=== PATIENT | female | born 1945 | race Hispanic/Latino ===

== ENCOUNTER 2017-11-20 05:19 | Emergency (ER) | payer MEDICARE ==
[~2017-11-20 05:19] MED LIST: ASPI-1181 PO; EZET10 PO; LEVO50TA4 PO; METO25TA6 PO; PIND10TA2 PO; ROSU20TA PO
[2017-11-20] MEDS ORDERED: ONDANSETRON ODT 4 MG TAB ONE (05:26)
[2017-11-20] MEDS ORDERED: HYDRALAZINE HCL 20 MG/ML VIAL ONE (05:38)
[2017-11-20 05:51] LABS: BASOPHILS % (AUTO) 0.7 % (0.0-5.0); EOSINOPHILS % (AUTO) 1.5 % (0.0-8.0); HEMATOCRIT 40.3 % (36-48); LYMPHOCYTES % (AUTO) 18.4 % (21.0-51.0); MEAN CORPUSCULAR HEMOGLOBIN 29.9 pg (27.0-33.0); MEAN CORPUSCULAR HGB CONC 33.4 g/dL (32.0-36.0); MEAN CORPUSCULAR VOLUME 89.7 fL (79-99); MONOCYTES % (AUTO) 9.1 % (3.0-13.0); NEUTROPHILS % (AUTO) 70.3 % (40.0-77.0); NUCLEATED RED BLOOD CELLS 0.1 % (0.0-0.19); PLATELET COUNT (AUTO) 288 K/uL (130-400); RED CELL DISTRIBUTION WIDTH 14.8 % (11.0-15.5); WHITE BLOOD COUNT (AUTO) 9.2 K/uL (4.8-10.8)
[2017-11-20] MEDS ORDERED: IOPAMIDOL-370 75 ML VIAL IV ONE (06:00)
[2017-11-20 06:16] LABS: APPEARANCE,URINE Clear (CLEAR); BILIRUBIN,URINE Negative (NEGATIVE); COLOR,URINE Yellow (YELLOW); GLUCOSE, URINE (UA) Negative (NEGATIVE); KETONES,URINE Negative (NEGATIVE); LEUKOCYTE ESTERASE ,URINE Trace (NEGATIVE); NITRATE,URINE Negative (NEGATIVE); OCCULT BLOOD,URINE Negative (NEGATIVE); PH,URINE 7.5 (5.0-8.0); PROTEIN,URINE POS 2+ (NEGATIVE); UROBILINOGEN,URINE 0.2 mg/dL (0.2-1.0)
[2017-11-20 06:17] LABS: RAPID GROUP A STREP NEGATIVE (NEGATIVE)
[2017-11-20] MEDS ORDERED: ONDANSETRON HCL 4 MG/2 ML VIAL ONE ×2 (06:21→07:52)
[2017-11-20 06:32] LABS: CREATININE 0.7 mg/dL (0.5-1.5); POTASSIUM 3.3 mmol/L (3.5-5.1)
[2017-11-20 06:37] LABS: ALBUMIN 3.5 g/dL (3.5-5.0); BILIRUBIN,TOTAL 0.3 mg/dL (0.2-1.0); TOTAL PROTEIN, SERUM 7.6 g/dL (6.0-8.3)
[2017-11-20] MEDS ORDERED: MORPHINE SULFATE 8 MG/ML VIAL ONE (06:41)
[2017-11-20 07:25] LABS: BACTERIA,URINE Rare /HPF (None Seen); SQUAMOUS EPITHELIAL CELL,UR Rare /LPF (0-2); WBC,URINE 0-1 /HPF (0-1)
== END 2017-11-20 11:56 | disposition home or self-care (01) ==
LOC: EDH 05:19
DX: R10.30 Lower abdominal pain, unspecified (principal); R11.2 Nausea with vomiting, unspecified; I10 Essential (primary) hypertension
CPT/HCPCS: 36415; 70450; 71045; 74177; 80053; 81001; 83605; 83690; 84484; 85025; 87804 ×2; 87880; 96365; 96366; 96375; 96376; 99285; J0360; J2270; J2405 ×2; Q9967

== ENCOUNTER 2019-01-11 18:17 | Emergency (ER) | payer MEDICARE ==
[~2019-01-11 18:17] MED LIST changes: -ROSU20TA PO; +ROSU20TA23 PO
[2019-01-11 19:10] LABS: BASOPHILS % (AUTO) 0.4 % (0.0-5.0); EOSINOPHILS % (AUTO) 1.6 % (0.0-8.0); HEMATOCRIT 38.8 % (36-48); LYMPHOCYTES % (AUTO) 17.3 % (21.0-51.0); MEAN CORPUSCULAR HEMOGLOBIN 30.3 pg (27.0-33.0); MEAN CORPUSCULAR VOLUME 91.6 fL (79-99); MONOCYTES % (AUTO) 11.2 % (3.0-13.0); NEUTROPHILS % (AUTO) 69.5 % (40.0-77.0); NUCLEATED RED BLOOD CELLS 0.1 % (0.0-0.19); PLATELET COUNT (AUTO) 275 K/uL (130-400); RED BLOOD CELL COUNT(AUTO) 4.23 MIL/uL (4.00-5.50); RED CELL DISTRIBUTION WIDTH 15.1 % (11.0-15.5); WHITE BLOOD COUNT (AUTO) 7.4 K/uL (4.8-10.8)
[2019-01-11 19:30] LABS: POTASSIUM 4.6 mmol/L (3.5-5.1)
[2019-01-11 19:34] LABS: ALBUMIN 3.5 g/dL (3.5-5.0); BILIRUBIN,TOTAL 0.2 mg/dL (0.2-1.0); TOTAL PROTEIN, SERUM 7.6 g/dL (6.0-8.3)
[2019-01-11 20:16] LABS: APPEARANCE,URINE CLOUDY (CLEAR); BILIRUBIN,URINE NEGATIVE (NEGATIVE); COLOR,URINE YELLOW (YELLOW); GLUCOSE, URINE (UA) NEGATIVE (NEGATIVE); KETONES,URINE NEGATIVE (NEGATIVE); LEUKOCYTE ESTERASE ,URINE NEGATIVE (NEGATIVE); NITRATE,URINE NEGATIVE (NEGATIVE); OCCULT BLOOD,URINE NEGATIVE (NEGATIVE); PROTEIN,URINE NEGATIVE (NEGATIVE); UROBILINOGEN,URINE 0.2 mg/dL (0.2-1.0)
[2019-01-11 20:39] LABS: BACTERIA,URINE Rare /HPF (None Seen); RBC,URINE 0-1 /HPF (0-1); SQUAMOUS EPITHELIAL CELL,UR Rare /HPF (0-2); WBC,URINE 0-1 /HPF (0-1)
[2019-01-11 20:40] LABS: MUCUS,URINE Rare LPF (None Seen)
== END 2019-01-11 20:54 | disposition home or self-care (01) ==
LOC: EDH 18:17
DX: N81.4 Uterovaginal prolapse, unspecified (principal); R30.0 Dysuria; I10 Essential (primary) hypertension; Z98.890 Other specified postprocedural states
CPT/HCPCS: 36415; 71045; 76856; 80053; 81001; 85025

== ENCOUNTER → 2019-08-31 | Outpatient (CLI) | payer MEDICARE ==
[~2019-08-31] MED LIST changes: -EZET10 PO; +EZET10TA13 PO; +IOHEXOL-350 50ML VIAL IV ONE; +IOHEXOL-350 75 ML VIAL IV ONE
== END | disposition home or self-care (01) ==
LOC: RAH 08:10
PROVIDERS: ATTEND Internal Medicine Cardiovascular Disease
DX: I11.9 Hypertensive heart disease without heart failure (principal); I70.0 Atherosclerosis of aorta; I35.0 Nonrheumatic aortic (valve) stenosis; I73.9 Peripheral vascular disease, unspecified; K55.1 Chronic vascular disorders of intestine; K57.30 Diverticulosis of large intestine without perforation or abscess without bleeding; N28.1 Cyst of kidney, acquired; K44.9 Diaphragmatic hernia without obstruction or gangrene; I70.1 Atherosclerosis of renal artery
CPT/HCPCS: 75635; Q9967 ×2

== ENCOUNTER 2019-09-17 05:55 | Day surgery (SDC) | payer MEDICARE ==
[2019-09-15 14:36] VITALS: BP 201/83
[2019-09-15 14:42] LABS: BASOPHILS % (AUTO) 0.6 % (0.0-5.0); HEMATOCRIT 36.6 % (36-48); LYMPHOCYTES % (AUTO) 19.3 % (21.0-51.0); MEAN CORPUSCULAR HEMOGLOBIN 29.7 pg (27.0-33.0); MEAN CORPUSCULAR HGB CONC 32.7 g/dL (32.0-36.0); MEAN CORPUSCULAR VOLUME 90.9 fL (79-99); MONOCYTES % (AUTO) 10.5 % (3.0-13.0); NEUTROPHILS % (AUTO) 68.6 % (40.0-77.0); PLATELET COUNT (AUTO) 292 K/uL (130-400); RED BLOOD CELL COUNT(AUTO) 4.03 MIL/uL (4.00-5.50); RED CELL DISTRIBUTION WIDTH 15.8 % (11.0-15.5)
[2019-09-15 14:46] LABS: CREATININE 0.6 mg/dL (0.5-1.5); POTASSIUM 4.7 mmol/L (3.5-5.1)
[2019-09-15 14:47] LABS: APPEARANCE,URINE CLEAR (CLEAR); BILIRUBIN,URINE NEGATIVE (NEGATIVE); COLOR,URINE YELLOW (YELLOW); GLUCOSE, URINE (UA) NEGATIVE (NEGATIVE); KETONES,URINE NEGATIVE (NEGATIVE); LEUKOCYTE ESTERASE ,URINE NEGATIVE (NEGATIVE); NITRATE,URINE NEGATIVE (NEGATIVE); OCCULT BLOOD,URINE TRACE-LYSED (NEGATIVE); PROTEIN,URINE NEGATIVE (NEGATIVE); UROBILINOGEN,URINE 0.2 mg/dL (0.2-1.0)
[2019-09-15 14:49] LABS: INR 1.02 (0.85-1.15); PARTIAL THROMBOPLASTIN TIME 24.8 SEC (26.3-35.5); PROTHROMBIN TIME 10.7 SEC (9.6-11.6)
[2019-09-15 14:56] LABS: BACTERIA,URINE Rare /HPF (None Seen); MUCUS,URINE Rare LPF (None Seen); SQUAMOUS EPITHELIAL CELL,UR Few /HPF (0-2); WBC,URINE 0-1 /HPF (0-1)
[2019-09-17] VITALS (12 sets, daily range): BP systolic 100–188; BP diastolic 53–82
[~2019-09-17] VITALS: Ht 144.8 cm; Wt 50.1 kg
[~2019-09-17 05:55] MED LIST changes: -ASPI-1181 PO; +ASPI-555 PO; +BIMA2.5D4 OU; -IOHEXOL-350 50ML VIAL IV ONE; -IOHEXOL-350 75 ML VIAL IV ONE; +IRON; +LOSA25TA41 PO; +METF500S7 PO; -METO25TA6 PO; -PIND10TA2 PO; +PIND5 PO; +SODIUM CHLORIDE 0.9% 500ML 500 ML IV SCH; +VIT D3
[2019-09-17] MEDS ORDERED: SODIUM CHLORIDE 0.9% 1000ML 1,000 ML IV ONE (06:29)
[2019-09-17] MEDS ORDERED: LEVO75TA10 PO (06:46)
[2019-09-17] MEDS ORDERED: HEPARIN SODIUM 1000UNIT/ML 10ML VIAL ONE (07:14)
[2019-09-17] MEDS ORDERED: NITROGLYCERIN 5 MG/ML 10 ML VIAL IV ONE (07:15)
[2019-09-17] MEDS ORDERED: IODIXANOL 320 MG/ML 100 ML VIAL ONE (07:15)
[2019-09-17] MEDS ORDERED: MIDAZOLAM HCL 1 MG/ML 2ML VIAL ONE (07:15)
[2019-09-17] MEDS ORDERED: FENTANYL CITRATE PF 50 MCG/1 ML 2ML VIAL ONE (07:15)
[2019-09-17] MEDS ORDERED: LIDOCAINE HCL 2% 20ML ONE ×2 (07:15→09:12)
--- NOTE | 2019-09-17 07:20 | NUR ---
PROCEDURE PT TAKEN TO MANAGER [place] FOR SCHEDULE PROCEDURE , FAMILY AT BEDSIDE.
[2019-09-17] MEDS ORDERED: LABETALOL HCL 5 MG/ML 20ML VIAL IV ONE (07:40)
[2019-09-17] MEDS ORDERED: ONDANSETRON HCL 4 MG/2 ML VIAL ONE (08:30)
[2019-09-17] MEDS ORDERED: HYDRALAZINE HCL 20 MG/ML VIAL ONE (09:02)
--- NOTE | 2019-09-17 10:15 | NUR ---
post received pt from [employer], s/p abd aortagram with chaparrita runoffs. angioseal closure device to chaparrita groin. see post cath assessment. pt arrived very nauseated. vs stable on arrival. pt awake and alert, DR. Lind spoke to family about findings on procedure performed. plan of care discuss with patient and family , instructed to keep bedrest . will continue to monitor
[2019-09-17] MEDS ORDERED: METOCLOPRAMIDE 10 MG/2 ML VIAL ONE (10:24)
--- NOTE | 2019-09-17 10:27 | NUR ---
med medicated with reglan iv for c/o nausea per md orders. will monitor for med effect
[2019-09-17] MEDS ORDERED: METOCLOPRAMIDE 10 MG/2 ML VIAL IVP PRN (11:00)
--- NOTE | 2019-09-17 11:25 | NUR ---
med effect patient stated nausea subsided, states "just feels sleepy , want to sleep". pt offered lunch she stated "wants to eat later".
== END 2019-09-17 17:10 | disposition home or self-care (01) ==
LOC: DAH 05:55
PROVIDERS: ATTEND Internal Medicine Cardiovascular Disease
DX: I70.211 Atherosclerosis of native arteries of extremities with intermittent claudication, right leg (principal); M79.651 Pain in right thigh; M79.652 Pain in left thigh; I25.10 Atherosclerotic heart disease of native coronary artery without angina pectoris; I11.0 Hypertensive heart disease with heart failure; I50.33 Acute on chronic diastolic (congestive) heart failure; E78.5 Hyperlipidemia, unspecified; E03.9 Hypothyroidism, unspecified; Z95.1 Presence of aortocoronary bypass graft; Z79.899 Other long term (current) drug therapy; Z79.82 Long term (current) use of aspirin; Z79.84 Long term (current) use of oral hypoglycemic drugs; Z86.010 Personal history of colon polyps; Z82.49 Family history of ischemic heart disease and other diseases of the circulatory system; Z83.3 Family history of diabetes mellitus
CPT/HCPCS: 36247; 36415; 71045; 75630; 80048; 81001; 82948 ×3; 85025; 85610; 85730; 93005; A4215; A4216; A4221; A4222; A4223 ×3; A4606; A4663; C1760 ×2; C1769 ×2; C1894 ×4; J0360; J1644 ×2; J2405; J2765; J3010; J3490 ×4; J7030; Q9967; 99156; 99157; J2250

== ENCOUNTER → 2021-07-18 | Outpatient (CLI) | payer MEDICARE ==
[~2021-07-18] MED LIST changes: -ASPI-555 PO; +ASPI-556 PO; -LEVO50TA4 PO; +LEVO75TA10 PO; -SODIUM CHLORIDE 0.9% 500ML 500 ML IV SCH
== END | disposition home or self-care (01) ==
LOC: RAH 08:17
PROVIDERS: ATTEND Internal Medicine Cardiovascular Disease
DX: K80.20 Calculus of gallbladder without cholecystitis without obstruction (principal); N28.1 Cyst of kidney, acquired; R94.5 Abnormal results of liver function studies
CPT/HCPCS: 76705

== ENCOUNTER → 2022-12-20 | Outpatient (CLI) | payer MEDICARE ==
[~2022-12-20] MED LIST changes: -METF500S7 PO; +METF500S9 PO
[2022-12-20 13:15] LABS: CREATININE 1.4 mg/dL (0.5-1.5)
== END | disposition home or self-care (01) ==
LOC: LAB 08:08
PROVIDERS: ATTEND Internal Medicine Cardiovascular Disease
DX: I25.2 Old myocardial infarction (principal)
CPT/HCPCS: 36415; 80048

== ENCOUNTER 2023-01-28 15:30 | Emergency (ER) | payer MEDICARE | END 2023-01-28 17:07 | disposition left against medical advice (07) | LOC: EDH 15:30 | DX: M79.606 Pain in leg, unspecified (principal); Z53.21 Procedure and treatment not carried out due to patient leaving prior to being seen by health care provider ==

== ENCOUNTER 2023-01-29 23:51 | Emergency (ER) | payer MEDICARE ==
[~2023-01-29] VITALS: Ht 144.8 cm; Wt 45.8 kg
[2023-01-30] MEDS ORDERED: IBUP-1493 PO (00:21)
[2023-01-30] MEDS ORDERED: GABA300C PO (00:21)
[2023-01-30 03:35] LABS: APPEARANCE,URINE CLOUDY (CLEAR); BACTERIA,URINE RARE /HPF (None Seen); BILIRUBIN,URINE NEGATIVE (NEGATIVE); COLOR,URINE LIGHT-YELLOW (YELLOW); GLUCOSE, URINE (UA) >=1000 mg/dL (NEGATIVE); KETONES,URINE NEGATIVE (NEGATIVE); LEUKOCYTE ESTERASE ,URINE 25 Leu/uL (NEGATIVE); NITRATE,URINE NEGATIVE (NEGATIVE); OTHER CASTS, URINE 1 /LPF (None Seen); PH,URINE 6.5 (5.0-8.0); PROTEIN,URINE 50 mg/dL (NEGATIVE); RBC,URINE 0-1 /HPF (0-1); SQUAMOUS EPITHELIAL CELL,UR RARE /HPF (0-2); UROBILINOGEN,URINE 0.2 mg/dL (0.2-1.0)
[2023-01-30] MEDS ORDERED: ACETAMINOPHEN 500 MG TABLET ONE (03:49)
[2023-01-30] MEDS ORDERED: ACETAMINOPHEN 500 MG TABLET PO STA (04:13)
[2023-01-30 04:15] VITALS: BP 132/74
[2023-02-01] MEDS ORDERED: ATOR40TA69 PO (10:49)
[2023-02-01] MEDS ORDERED: DAPA5TAB PO (10:49)
[2023-02-01] MEDS ORDERED: LOSA50TA64 PO (10:49)
[2023-02-01] MEDS ORDERED: ALEN70TA80 PO (15:42)
== END 2023-01-30 04:24 | disposition home or self-care (01) ==
LOC: EDH 23:51
DX: M54.50 Low back pain, unspecified (principal); M19.90 Unspecified osteoarthritis, unspecified site; E11.9 Type 2 diabetes mellitus without complications; E78.00 Pure hypercholesterolemia, unspecified; E03.9 Hypothyroidism, unspecified; I10 Essential (primary) hypertension; Z79.1 Long term (current) use of non-steroidal anti-inflammatories (NSAID); Z79.84 Long term (current) use of oral hypoglycemic drugs; Z79.899 Other long term (current) drug therapy; Z90.49 Acquired absence of other specified parts of digestive tract
CPT/HCPCS: 72100; 81001; 87088

== ENCOUNTER 2023-01-31 21:33 | Emergency (ER) | payer MEDICARE ==
[~2023-01-31] VITALS: Ht 149.9 cm; Wt 43.1 kg
[~2023-01-31 21:33] MED LIST changes: +GABA300C PO; +IBUP-1493 PO
[2023-01-31] MEDS ORDERED: MORPHINE 2 MG SYG IM SCH (22:00)
[2023-01-31 22:15] VITALS: BP 137/75
[2023-02-01] MEDS ORDERED: LOSA50TA64 PO (10:49)
[2023-02-01] MEDS ORDERED: DAPA5TAB PO (10:49)
[2023-02-01] MEDS ORDERED: ATOR40TA69 PO (10:49)
[2023-02-01] MEDS ORDERED: ALEN70TA80 PO (15:42)
== END 2023-01-31 22:49 | disposition home or self-care (01) ==
LOC: EDH 21:33
DX: M54.50 Low back pain, unspecified (principal); M19.90 Unspecified osteoarthritis, unspecified site; E11.9 Type 2 diabetes mellitus without complications; E78.00 Pure hypercholesterolemia, unspecified; E03.9 Hypothyroidism, unspecified; I10 Essential (primary) hypertension; Z79.1 Long term (current) use of non-steroidal anti-inflammatories (NSAID); Z79.84 Long term (current) use of oral hypoglycemic drugs; Z79.899 Other long term (current) drug therapy; Z90.49 Acquired absence of other specified parts of digestive tract
CPT/HCPCS: 72100; 81001; 87088; 96372